=== PATIENT | male | born 1975 | race Hispanic/Latino ===

== ENCOUNTER 2016-08-13 19:35 | Emergency (ER) | payer MEDICAID, MEDICARE, OTHER ==
[2016-08-13 19:36] VITALS: BMI 45.6
[2016-08-13 20:22] VITALS: BP 141/95; PULSE 82; RESP 16; TEMP 98.6; O2SAT 99
--- NOTE | 2016-08-13 21:44 | ED PDOC ---
HPI: General Adult Time Seen by Provider: 08/13/16 21:15 Chief Complaint (Nursing): Abdominal Pain Chief Complaint (Provider): groin pain History Per: Patient (41 y/o male states he noted groin pain earlier today when walking that has now resolved. Denies any back pain/dysuria/hematuria/urinary frequency/fevers/chills/vomiting. Denies any h/o falls. Has h/o psych illness (but denies in ED). States he feels well now but was advised by brother to be evaluated in ED. Has h/o h/o kidney stones.) Past Medical History Reviewed: Historical Data, Nursing Documentation, Vital Signs Vital Signs: Last Vital Signs Temp 98.6 F 08/13/16 20:19 Pulse 82 08/13/16 20:19 Resp 16 08/13/16 20:19 BP 141/95 H 08/13/16 20:19 Pulse Ox 99 08/13/16 20:19 - Medical History PMH: Bipolar Disorder, GERD, Schizophrenia - Surgical History Surgical History: Appendectomy - Family History Family History: States: Unknown Family Hx - Immunization History Hx Tetanus Toxoid Vaccination: No Hx Influenza Vaccination: No Hx Pneumococcal Vaccination: No - Home Medications Home Medications: Ambulatory Orders Medication Instructions Recorded Acetaminophen [Tylenol 325mg tab] 650 mg PO Q6 PRN 07/29/16 Albuterol HFA [Ventolin HFA 90 2 puff IH [id number] #1 puff 07/29/16 mcg/actuation (8 g)] - Allergies Allergies/Adverse Reactions: Allergies Allergy/AdvReac Type Severity Reaction Status Date / Time DUST Allergy ITCHING Uncoded 08/13/16 20:19 Review of Systems ROS Statement: Except As Marked, All Systems Reviewed And Found Negative Physical Exam - Reviewed Nursing Documentation Reviewed: Yes Vital Signs Reviewed: Yes - Physical Exam Appears: Positive for: Well, Non-toxic, No Acute Distress Head Exam: Positive for: ATRAUMATIC, NORMAL INSPECTION, NORMOCEPHALIC Skin: Positive for: Normal Color, Warm, DRY Eye Exam: Positive for: EOMI, Normal appearance, PERRL ENT: Positive for: Normal ENT Inspection Neck: Positive for: Normal, Painless ROM Cardiovascular/Chest: Positive for: Regular Rate, Rhythm Respiratory: Positive for: CNT, Normal Breath Sounds Gastrointestinal/Abdominal: Positive for: Normal Exam, Bowel Sounds, Soft Male Genital Exam: Positive for: normal genitalia, no hernia. Negative for: inguinal tenderness, scrotum tenderness (R), scrotum tenderness (L), testicular tenderness (R), testicular tenderness (L) Back: Positive for: Normal Inspection Extremity: Positive for: Normal ROM Neurologic/Psych: Positive for: Alert, Oriented - Laboratory Results Urine dip results: Negative for: Leukocyte Esterase, Blood, Nitrate, Ketones, Glucose, Bilirubin, Protein - ECG O2 Sat by Pulse Oximetry: 99 Disposition - Clinical Impression Clinical Impression: Muscle strain - Patient ED Disposition Is Patient to be Admitted: No - Disposition Referrals: [facility] [Outside] Disposition: Routine/Home Disposition Time: 21:43 Condition: FAIR Instructions: Muscle Strain (ED)
== END 2016-08-13 21:54 | disposition home or self-care (01) ==
LOC: H.ER 19:35
DX: R10.9 Unspecified abdominal pain (principal)

== ENCOUNTER 2016-11-14 09:39 | Emergency (ER) | payer MEDICARE, OTHER ==
[2016-11-14 09:43] VITALS: BP 131/78; PULSE 90; TEMP 97; O2SAT 98; BMI 38.3
--- NOTE | 2016-11-15 17:51 | ED PDOC ---
HPI: CCC, URI, Sore Throat Time Seen by Provider: 11/14/16 10:01 Chief Complaint (Nursing): ENT Problem History Per: Patient History/Exam Limitations: no limitations Have you had recent travel within the past 21 days to any of the following countries: [place], [place], [place] or [place]?: No Onset/Duration Of Symptoms: Days (4) Current Symptoms Are (Timing): Still Present Location Of Pain: Ear(s), Throat, Sinus/es Sick Contacts (Context): None Associated Symptoms: Sore Throat, Neck Pain, Sinus Drainage, Myalgias, Nasal Congestion. denies: Fever, Chills, Cough, Sputum, Nausea, Vomiting, Diarrhea Ear Symptoms: Bilateral: None Severity: Mild Pain Scale Rating Of: 2 Additional History Per: Patient Additional Complaint(s): Pt c/o sore throat, runny nose x2 days. Denies fever. Reports taking OTC medications with no relief Past Medical History Reviewed: Historical Data, Nursing Documentation, Vital Signs Vital Signs: Last Vital Signs Temp 97 F L 11/14/16 09:42 Pulse 90 11/14/16 09:42 Resp BP 131/78 11/14/16 09:42 Pulse Ox 98 11/14/16 13:03 - Medical History PMH: Bipolar Disorder, GERD, Schizophrenia - Surgical History Surgical History: Appendectomy - Family History Family History: States: Unknown Family Hx - Immunization History Hx Tetanus Toxoid Vaccination: No Hx Influenza Vaccination: No Hx Pneumococcal Vaccination: No - Home Medications Home Medications: Ambulatory Orders Medication Instructions Recorded Acetaminophen [Tylenol 325mg tab] 650 mg PO Q6 PRN 07/29/16 Albuterol HFA [Ventolin HFA 90 2 puff IH [id number] #1 puff 07/29/16 mcg/actuation (8 g)] - Allergies Allergies/Adverse Reactions: Allergies Allergy/AdvReac Type Severity Reaction Status Date / Time DUST Allergy ITCHING Uncoded 08/13/16 20:19 Review of Systems ROS Statement: Except As Marked, All Systems Reviewed And Found Negative Physical Exam - Reviewed Nursing Documentation Reviewed: Yes Vital Signs Reviewed: Yes - Physical Exam Appears: Positive for: Well, Non-toxic, No Acute Distress Head Exam: Positive for: ATRAUMATIC Skin: Positive for: Warm, Dry Eye Exam: Positive for: EOMI ENT: Positive for: Normal ENT Inspection, Nasal Congestion. Negative for: Pharyngeal Erythema, Tonsillar Exudate, Tonsillar Swelling Neck: Positive for: Painless ROM, Supple Cardiovascular/Chest: Positive for: Regular Rate, Rhythm Respiratory: Negative for: Respiratory Distress Neurologic/Psych: Positive for: Alert, Oriented - ECG O2 Sat by Pulse Oximetry: 98 Medical Decision Making Medical Decision Making: Impression URI Diff include allergic sinusitis rhinitis, viral URI Plan rapid strep symptomatic care tat home Disposition - Clinical Impression Clinical Impression: Pharyngitis, Tonsillitis, Seasonal allergies - Patient ED Disposition Is Patient to be Admitted: No Doctor Will See Patient In The: Office Counseled Patient/Family Regarding: Studies Performed, Diagnosis, Need For Followup - Disposition Referrals: [facility] [Outside] Disposition: Routine/Home Disposition Time: 11:00 Condition: GOOD Additional Instructions: Follow up with your PCP in 2-3 days. Instructions: Pharyngitis (ED)
== END 2016-11-14 13:40 | disposition home or self-care (01) ==
LOC: H.ER 09:39
DX: J03.90 Acute tonsillitis, unspecified (principal); J30.2 Other seasonal allergic rhinitis; F20.9 Schizophrenia, unspecified; F31.9 Bipolar disorder, unspecified

== ENCOUNTER 2017-01-31 14:45 | Emergency (ER) | payer MEDICARE, OTHER ==
[2017-01-31 14:45] VITALS: BMI 38.3
[2017-01-31 15:13] VITALS: BP 128/72; PULSE 78; RESP 18; TEMP 98.4; O2SAT 100
--- NOTE | 2017-01-31 15:28 | ED PDOC ---
Upper Extremity Pain/Injury Time Seen by Provider: 01/31/17 15:16 Chief Complaint (Nursing): Finger,Hand,&Wrist Chief Complaint (Provider): right thumb laceration History Per: Patient History/Exam Limitations: no limitations Onset/Duration Of Symptoms: Days (x2) Current Symptoms Are (Timing): Still Present Additional Complaint(s): Bruce is a 41 y/o male who presents to the ED for evaluation of a laceration to the right thumb. States he accidentally cut himself on the thumb while opening aluminum can last night at 6PM. States he was unable to control the bleeding, prompting ED visit. Tetanus is not up to date. PMD: Dr. Sharma Past Medical History Reviewed: Historical Data, Nursing Documentation, Vital Signs Vital Signs: Last Vital Signs Temp 98.4 F 01/31/17 15:10 Pulse 78 01/31/17 15:10 Resp 18 01/31/17 15:10 BP 128/72 01/31/17 15:10 Pulse Ox 100 01/31/17 15:10 - Medical History PMH: Bipolar Disorder, GERD, Schizophrenia - Surgical History Surgical History: Appendectomy - Family History Family History: States: Unknown Family Hx - Immunization History Hx Tetanus Toxoid Vaccination: No Hx Influenza Vaccination: No Hx Pneumococcal Vaccination: No - Home Medications Home Medications: Ambulatory Orders Medication Instructions Recorded Acetaminophen [Tylenol 325mg tab] 650 mg PO Q6 PRN 07/29/16 Albuterol HFA [Ventolin HFA 90 2 puff IH [id number] #1 puff 07/29/16 mcg/actuation (8 g)] Cephalexin [cephalexin] 500 mg PO Q6 #12 cap 01/31/17 - Allergies Allergies/Adverse Reactions: Allergies Allergy/AdvReac Type Severity Reaction Status Date / Time DUST Allergy ITCHING Uncoded 08/13/16 20:19 Review of Systems ROS Statement: Except As Marked, All Systems Reviewed And Found Negative Constitutional: Negative for: Fever, Chills Skin: Positive for: Lesions (Laceration at right thumb) Neurological: Negative for: Weakness, Numbness Physical Exam - Reviewed Nursing Documentation Reviewed: Yes Vital Signs Reviewed: Yes - Physical Exam Appears: Positive for: Well, Non-toxic, No Acute Distress Head Exam: Positive for: ATRAUMATIC, NORMAL INSPECTION, NORMOCEPHALIC Skin: Positive for: Normal Color (with 0.5 cm linear very superficial laceration on the distal phalanx of the palmar surface of the right thumb. No active bleeding.), Warm, Dry Eye Exam: Positive for: EOMI, Normal appearance, PERRL Neck: Positive for: Normal, Painless ROM Respiratory: Negative for: Respiratory Distress Pulses-Radial (L): 2+ Pulses-Radial (R): 2+ Extremity: Positive for: Normal ROM (Full ROM actively of thumb), Capillary Refill (< 2 sec). Negative for: Deformity Neurologic/Psych: Positive for: Alert, Oriented - ECG O2 Sat by Pulse Oximetry: 100 (RA) Pulse Ox Interpretation: Normal Medical Decision Making Medical Decision Making: Time: 15:28 Initial Plan: --Given Tetanus vaccine --Patient stable for discharge home, given Rx for Cephalexin --Provided instructions for wound care and counseled on the need for follow up Clinical Impression: Finger laceration Scribe Attestation: Documented by Shu Zhou, acting as a scribe for Ayden Diallo PA-C Provider Scribe Attestation: All medical record entries made by the Scribe were at my direction and personally dictated by me. I have reviewed the chart and agree that the record accurately reflects my personal performance of the history, physical exam, medical decision making, and the department course for this patient. I have also personally directed, reviewed, and agree with the discharge instructions and disposition. Disposition - Clinical Impression Clinical Impression: Finger laceration - Patient ED Disposition Is Patient to be Admitted: No Counseled Patient/Family Regarding: Diagnosis, Need For Followup - Disposition Referrals: [facility] [Outside] Disposition: Routine/Home Disposition Time: 15:28 Condition: STABLE Prescriptions: Cephalexin [cephalexin] 500 mg PO Q6 #12 cap Instructions: Laceration Without Closure (ED) Forms: [employer] (Yi) Print Language: OCCITAN
== END 2017-01-31 16:37 | disposition home or self-care (01) ==
LOC: H.ER 14:45
DX: S61.011A Laceration without foreign body of right thumb without damage to nail, initial encounter (principal); W26.8XXA Contact with other sharp object(s), not elsewhere classified, initial encounter; Z23 Encounter for immunization

== ENCOUNTER 2017-04-11 19:13 | Emergency (ER) | payer MEDICARE, OTHER ==
[2017-04-11 19:13] VITALS: BMI 38.3
[2017-04-11 19:23] VITALS: PULSE 94; RESP 20; TEMP 98; O2SAT 98
[2017-04-11 19:35] VITALS: BP 136/86
--- NOTE | 2017-04-11 19:53 | ED PDOC ---
HPI: General Adult Chief Complaint (Nursing): Cough, Cold, Congestion Chief Complaint (Provider): Cough, Cold, Congestion History Per: Patient History/Exam Limitations: no limitations Onset/Duration Of Symptoms: Days, Other (x 1) Current Symptoms Are (Timing): Still Present Additional Complaint(s): Bruce is a 41 year old male with a past medical history of bipolar disorder and hypertension who presents to the emergency department complaining of nasal congestion and sore throat since yesterday. Patient admits to taking medications for hypertension. Denies fever or chills. PMD: Tristan Sharma Past Medical History Reviewed: Historical Data, Nursing Documentation, Vital Signs Vital Signs: Last Vital Signs Temp 98.0 F 04/11/17 19:22 Pulse 94 H 04/11/17 19:22 Resp 20 04/11/17 19:22 BP 136/86 04/11/17 19:34 Pulse Ox 98 04/11/17 20:27 - Medical History PMH: Bipolar Disorder, GERD, Schizophrenia - Surgical History Surgical History: Appendectomy - Family History Family History: States: Unknown Family Hx - Immunization History Hx Tetanus Toxoid Vaccination: No Hx Influenza Vaccination: No Hx Pneumococcal Vaccination: No - Home Medications Home Medications: Ambulatory Orders Medication Instructions Recorded Acetaminophen [Tylenol 325mg tab] 650 mg PO Q6 PRN 07/29/16 Albuterol HFA [Ventolin HFA 90 2 puff IH [id number] #1 puff 07/29/16 mcg/actuation (8 g)] Cephalexin [cephalexin] 500 mg PO Q6 #12 cap 01/31/17 Fluticasone Propionate [Flonase] 2 spr IN DAILY #1 bottle 04/11/17 - Allergies Allergies/Adverse Reactions: Allergies Allergy/AdvReac Type Severity Reaction Status Date / Time DUST Allergy ITCHING Uncoded 04/11/17 19:23 Review of Systems ROS Statement: Except As Marked, All Systems Reviewed And Found Negative ENT: Positive for: Nose Congestion, Throat Pain Physical Exam - Reviewed Nursing Documentation Reviewed: Yes Vital Signs Reviewed: Yes - Physical Exam Appears: Positive for: Non-toxic Head Exam: Positive for: ATRAUMATIC, NORMAL INSPECTION, NORMOCEPHALIC Skin: Positive for: Normal Color Eye Exam: Positive for: Normal appearance ENT: Positive for: Nasal Congestion. Negative for: Pharyngeal Erythema, Tonsillar Exudate Respiratory: Negative for: Respiratory Distress Extremity: Positive for: Normal ROM Neurologic/Psych: Positive for: Alert, Oriented (x 3) - ECG O2 Sat by Pulse Oximetry: 98 (RA) Pulse Ox Interpretation: Normal Medical Decision Making Medical Decision Making: Time: 19:52 Upon provider evaluation patient is medically stable, and requires no further treatment in the ED at this time. Patient will be discharged with Rx for Flonase. Counseling was provided and all questions were answered regarding diagnosis and need for follow up with local clinic. There is agreement to discharge plan. Return if symptoms persist or worsen. Scribe Attestation: Documented by Carlos Cottrell, acting as a scribe for Lucy Goodman PA-C Provider Scribe Attestation: All medical record entries made by the Scribe were at my direction and personally dictated by me. I have reviewed the chart and agree that the record accurately reflects my personal performance of the history, physical exam, medical decision making, and the department course for this patient. I have also personally directed, reviewed, and agree with the discharge instructions and disposition. Disposition - Clinical Impression Clinical Impression: Upper respiratory infection - Patient ED Disposition Is Patient to be Admitted: No - Disposition Disposition: Routine/Home Disposition Time: 20:23 Condition: FAIR Prescriptions: Fluticasone Propionate [Flonase] 2 spr IN DAILY #1 bottle Instructions: Upper Respiratory Infection (ED) Forms: [employer] (Belarusian), [facility] ED School/Work Excuse
== END 2017-04-11 20:28 | disposition home or self-care (01) ==
LOC: H.ER 19:13
DX: J06.9 Acute upper respiratory infection, unspecified (principal); F20.9 Schizophrenia, unspecified; F31.9 Bipolar disorder, unspecified; I10 Essential (primary) hypertension; K21.9 Gastro-esophageal reflux disease without esophagitis

== ENCOUNTER 2017-05-29 10:16 | Emergency (ER) | payer MEDICAID, MEDICARE, OTHER ==
[2017-05-29 10:21] VITALS: BMI 52.0
[2017-05-29 10:23] VITALS: RESP 16; O2SAT 100
[2017-05-29] MEDS ORDERED: Albuterol 0.083% Inhal Sol (2.5 mg/3 mL) UD INH STA (10:36)
[2017-05-29] MEDS ORDERED: Albuterol 0.083% Inhal Sol (2.5 mg/3 mL) UD ONE (10:44)
--- NOTE | 2017-05-29 10:47 | ED PDOC ---
HPI: CCC, URI, Sore Throat Time Seen by Provider: 05/29/17 10:19 Chief Complaint (Nursing): Cough, Cold, Congestion Chief Complaint (Provider): Throat pain, sinus pressure History Per: Patient History/Exam Limitations: no limitations Onset/Duration Of Symptoms: Days (Began yesterday ) Current Symptoms Are (Timing): Still Present Location Of Pain: Throat Sick Contacts (Context): None Associated Symptoms: Sore Throat, Cough (Dry for 2-3 days), Nasal Congestion. denies: Fever, Chills, Sinus Drainage, Myalgias, Vomiting, Diarrhea Ear Symptoms: Bilateral: None Additional Complaint(s): Pt has not been taking any medications for pain. Pt states he wanted to spend a few hours outside and wanted to make sure he wasn't too sick. Past Medical History Reviewed: Historical Data, Nursing Documentation, Vital Signs Vital Signs: Last Vital Signs Temp 98.0 F 05/29/17 10:22 Pulse 94 H 05/29/17 10:22 Resp 16 05/29/17 10:22 BP 145/99 H 05/29/17 10:22 Pulse Ox 100 05/29/17 10:47 - Medical History PMH: Bipolar Disorder, GERD, Schizophrenia - Surgical History Surgical History: Appendectomy - Family History Family History: States: Unknown Family Hx - Living Arrangements Living Arrangements: With Family - Social History Current smoker - smoking cessation education provided: No Alcohol: None Drugs: Denies - Immunization History Hx Tetanus Toxoid Vaccination: No Hx Influenza Vaccination: No Hx Pneumococcal Vaccination: No - Home Medications Home Medications: Ambulatory Orders Medication Instructions Recorded Acetaminophen [Tylenol 325mg tab] 650 mg PO Q6 PRN 07/29/16 Albuterol HFA [Ventolin HFA 90 2 puff IH [id number] #1 puff 07/29/16 mcg/actuation (8 g)] Cephalexin [cephalexin] 500 mg PO Q6 #12 cap 01/31/17 Fluticasone Propionate [Flonase] 2 spr IN DAILY #1 bottle 04/11/17 Albuterol HFA [Ventolin HFA 90 1 puff IH BID PRN #1 unit 05/29/17 mcg/actuation (8 g)] Fexofenadine/Pseudoephedrine 1 each PO BID PRN #12 tab.er.12h 05/29/17 [Lotus-D 12 Hour Tablet] - Allergies Allergies/Adverse Reactions: Allergies Allergy/AdvReac Type Severity Reaction Status Date / Time DUST Allergy ITCHING Uncoded 04/11/17 19:23 Review of Systems ROS Statement: Except As Marked, All Systems Reviewed And Found Negative Constitutional: Negative for: Fever, Chills ENT: Positive for: Nose Congestion, Throat Pain. Negative for: Ear Pain Cardiovascular: Negative for: Chest Pain, Palpitations Respiratory: Positive for: Cough Physical Exam - Reviewed Nursing Documentation Reviewed: Yes Vital Signs Reviewed: Yes - Physical Exam Appears: Positive for: Well, Non-toxic, No Acute Distress Head Exam: Positive for: ATRAUMATIC, NORMAL INSPECTION, NORMOCEPHALIC Skin: Positive for: Normal Color, Warm, DRY Eye Exam: Positive for: Normal appearance ENT: Positive for: Normal ENT Inspection Neck: Positive for: Normal, Painless ROM Cardiovascular/Chest: Positive for: Regular Rate, Rhythm Respiratory: Positive for: Wheezing (Mild, diffuse, expiratory). Negative for: Normal Breath Sounds Gastrointestinal/Abdominal: Positive for: Normal Exam, Bowel Sounds, Soft Back: Positive for: Normal Inspection Extremity: Positive for: Normal ROM Neurologic/Psych: Positive for: Alert, Oriented - ECG O2 Sat by Pulse Oximetry: 100 Disposition - Clinical Impression Clinical Impression: Viral illness - Patient ED Disposition Is Patient to be Admitted: No - Disposition Disposition: Routine/Home Disposition Time: 13:44 Condition: GOOD Prescriptions: Albuterol HFA [Ventolin HFA 90 mcg/actuation (8 g)] 1 puff IH BID PRN #1 unit PRN Reason: Wheezing Fexofenadine/Pseudoephedrine [Lotus-D 12 Hour Tablet] 1 each PO BID PRN #12 tab.er.12h PRN Reason: Cough And Congestion Instructions: Viral Syndrome (ED) Forms: [employer] (Irish)
[2017-05-29 14:08] VITALS: BP 140/80; PULSE 84; TEMP 98.4
== END 2017-05-29 14:07 | disposition home or self-care (01) ==
LOC: H.ER 10:16
DX: B34.9 Viral infection, unspecified (principal); F20.9 Schizophrenia, unspecified; F31.9 Bipolar disorder, unspecified; K21.9 Gastro-esophageal reflux disease without esophagitis

== ENCOUNTER 2017-06-24 07:26 | Emergency (ER) | payer MEDICARE ==
[2017-06-24 07:31] VITALS: BMI 38.3
[2017-06-24 07:32] VITALS: RESP 16; TEMP 97.5
[2017-06-24] MEDS ORDERED: Albuterol 0.083% Inhal Sol (2.5 mg/3 mL) UD INH STA (08:25)
--- NOTE | 2017-06-24 08:28 | ED PDOC ---
HPI: CCC, URI, Sore Throat Time Seen by Provider: 06/24/17 08:06 Chief Complaint (Nursing): Cough, Cold, Congestion History Per: Patient History/Exam Limitations: no limitations Onset/Duration Of Symptoms: Days (2), Gradual Current Symptoms Are (Timing): Still Present Sick Contacts (Context): None Associated Symptoms: Cough, Nasal Congestion. denies: Fever, Chills, Sore Throat, Sputum, Neck Pain, Sinus Drainage, Myalgias, Nausea, Vomiting, Diarrhea Ear Symptoms: Bilateral: None Severity: Mild Additional History Per: Patient Additional Complaint(s): c/o persistent cough, sinus pressure, runny nose x2 days. Past Medical History Reviewed: Historical Data, Nursing Documentation, Vital Signs Vital Signs: Last Vital Signs Temp 97.5 F L 06/24/17 07:31 Pulse 99 H 06/24/17 07:31 Resp 16 06/24/17 07:31 BP 139/91 H 06/24/17 07:31 Pulse Ox 97 06/24/17 08:29 - Medical History PMH: Bipolar Disorder, Bronchitis, GERD, HTN, Schizophrenia - Surgical History Surgical History: Appendectomy - Family History Family History: States: Unknown Family Hx - Living Arrangements Living Arrangements: With Family - Social History Current smoker - smoking cessation education provided: No - Immunization History Hx Tetanus Toxoid Vaccination: No Hx Influenza Vaccination: No Hx Pneumococcal Vaccination: No - Home Medications Home Medications: Ambulatory Orders Medication Instructions Recorded Acetaminophen [Tylenol 325mg tab] 650 mg PO Q6 PRN 07/29/16 Albuterol HFA [Ventolin HFA 90 2 puff IH [id number] #1 puff 07/29/16 mcg/actuation (8 g)] Cephalexin [cephalexin] 500 mg PO Q6 #12 cap 01/31/17 Fluticasone Propionate [Flonase] 2 spr IN DAILY #1 bottle 04/11/17 Albuterol HFA [Ventolin HFA 90 1 puff IH BID PRN #1 unit 05/29/17 mcg/actuation (8 g)] Fexofenadine/Pseudoephedrine 1 each PO BID PRN #12 tab.er.12h 05/29/17 [Lotus-D 12 Hour Tablet] Azithromycin 250 mg PO DAILY #4 tablet 06/24/17 - Allergies Allergies/Adverse Reactions: Allergies Allergy/AdvReac Type Severity Reaction Status Date / Time DUST Allergy ITCHING Uncoded 06/24/17 07:43 Review of Systems ROS Statement: Except As Marked, All Systems Reviewed And Found Negative Constitutional: Negative for: Fever, Chills ENT: Positive for: Nose Congestion. Negative for: Mouth Pain, Mouth Swelling, Throat Pain, Throat Swelling Cardiovascular: Negative for: Chest Pain, Palpitations Respiratory: Positive for: Cough, Sputum (white). Negative for: Shortness of Breath Gastrointestinal: Negative for: Nausea, Vomiting, Abdominal Pain, Diarrhea Neurological: Negative for: Weakness, Numbness Physical Exam - Reviewed Nursing Documentation Reviewed: Yes Vital Signs Reviewed: Yes - Physical Exam Appears: Positive for: Uncomfortable Head Exam: Positive for: ATRAUMATIC, NORMAL INSPECTION, NORMOCEPHALIC Eye Exam: Positive for: Normal appearance, EOMI, PERRL ENT: Positive for: Pharynx Is (clear,mmm), Nasal Congestion, Pharyngeal Erythema , Tonsillar Exudate. Negative for: Tonsillar Swelling Neck: Positive for: Normal, Painless ROM, Supple. Negative for: Decreased ROM, Limited ROM, Trachea Midline Cardiovascular/Chest: Positive for: Regular Rate, Rhythm. Negative for: Chest Non Tender, Edema, Gallop Respiratory: Positive for: Normal Breath Sounds. Negative for: Decreased Breath Sounds, Accessory Muscle Use, Crackles, Rales, Rhonchi, Stridor, Wheezing Gastrointestinal/Abdominal: Positive for: Normal Exam, Bowel Sounds, Soft. Negative for: Tenderness Extremity: Positive for: Normal ROM. Negative for: Tenderness, Pedal Edema, Calf Tenderness, Deformity, Swelling Neurologic/Psych: Positive for: Alert, french cord binder II-XII, Oriented, Mood/Affect (calm) , Gait (steady). Negative for: Motor/Sensory Deficits, Aphasia, Facial Droop - ECG O2 Sat by Pulse Oximetry: 97 Pulse Ox Interpretation: Normal - Radiology X-Ray: Interpreted by [facility] X-Ray Interpretation: Infiltrates (mild interstitial no lobar infiltrate) - Progress ED Course And Treament: will give z pack. advise close f/u with pmd or medical clinic pt agree's with plan and leaves ambulatory and in good spirits. Re-evaluation Time: 09:00 Condition: Improved Disposition - Clinical Impression Clinical Impression: Bronchitis - Patient ED Disposition Is Patient to be Admitted: No Counseled Patient/Family Regarding: Studies Performed, Diagnosis, Need For Followup, Rx Given - Disposition Referrals: [facility] [Outside] (2 to 3 days) Disposition: Routine/Home Disposition Time: 09:47 Condition: STABLE Prescriptions: Azithromycin 250 mg PO DAILY #4 tablet Instructions: Acute Bronchitis (ED) Forms: [employer] (Latvian)
[2017-06-24] MEDS ORDERED: Albuterol 0.083% Inhal Sol (2.5 mg/3 mL) UD ONE (08:33)
[2017-06-24 10:58] VITALS: BP 134/84; PULSE 87; O2SAT 98
--- NOTE | 2017-06-24 12:16 | RAD ---
HISTORY: Spell cough. COMPARISON: 10/21/2015. TECHNIQUE: Chest PA and lateral FINDINGS: LUNGS: No active pulmonary disease. PLEURA: No significant pleural effusion identified. No pneumothorax apparent. CARDIOVASCULAR: Normal. OSSEOUS STRUCTURES: No significant abnormalities. VISUALIZED UPPER ABDOMEN: Normal. OTHER FINDINGS: None. IMPRESSION: No active disease. No significant interval change compared to the prior examination(s). Concordant results with the preliminary interpretation rendered by the emergency department physician procedure.
== END 2017-06-24 10:56 | disposition home or self-care (01) ==
LOC: H.ER 07:26
DX: J40 Bronchitis, not specified as acute or chronic (principal); F20.9 Schizophrenia, unspecified; F31.9 Bipolar disorder, unspecified; I10 Essential (primary) hypertension; K21.9 Gastro-esophageal reflux disease without esophagitis

== ENCOUNTER 2017-10-18 08:30 | Emergency (ER) | payer MEDICARE ==
[2017-10-18 08:30] VITALS: BMI 38.3
[2017-10-18 08:36] VITALS: BP 134/89; PULSE 98; RESP 20; TEMP 98.5
[2017-10-18 08:42] VITALS: O2SAT 98
[2017-10-18] MEDS ORDERED: Albuterol 0.083% Inhal Sol (2.5 mg/3 mL) UD INH ONE (10:33)
--- NOTE | 2017-10-18 10:53 | ED PDOC ---
History of Present Illness History of Present Illness: 42 year old male presents to the emergency department with complaints of a cough onset two days. Patient denies fever, and denies taking any medications to help. PMD: none provided HPI: Influenza Time Seen by Provider: 10/18/17 09:00 Chief Complaint: Cough, Cold, Congestion Chief Complaint (Provider): cough History Per: Patient Exam Limitations: no limitations Onset/Duration Of Symptoms: Days (x2) Past Medical History Reviewed: Historical Data, Nursing Documentation, Vital Signs Vital Signs: Last Vital Signs Temp 98.5 F 10/18/17 08:33 Pulse 98 H 10/18/17 08:33 Resp 20 10/18/17 08:33 BP 134/89 10/18/17 08:33 Pulse Ox 98 10/18/17 08:40 - Medical History PMH: Bipolar Disorder, Bronchitis, GERD, HTN, Schizophrenia - Surgical History Surgical History: Appendectomy - Family History Family History: States: Unknown Family Hx - Social History Current smoker - smoking cessation education provided: No Alcohol: None Drugs: Denies - Immunization History Hx Tetanus Toxoid Vaccination: No Hx Influenza Vaccination: No Hx Pneumococcal Vaccination: No - Home Medications Home Medications: Ambulatory Orders Medication Instructions Recorded Acetaminophen [Tylenol 325mg tab] 650 mg PO Q6 PRN 07/29/16 Albuterol HFA [Ventolin HFA 90 2 puff IH [id number] #1 puff 07/29/16 mcg/actuation (8 g)] Cephalexin [cephalexin] 500 mg PO Q6 #12 cap 01/31/17 Fluticasone Propionate [Flonase] 2 spr IN DAILY #1 bottle 04/11/17 Albuterol HFA [Ventolin HFA 90 1 puff IH BID PRN #1 unit 05/29/17 mcg/actuation (8 g)] Fexofenadine/Pseudoephedrine 1 each PO BID PRN #12 tab.er.12h 05/29/17 [Lotus-D 12 Hour Tablet] Azithromycin 250 mg PO DAILY #4 tablet 06/24/17 Albuterol HFA [Ventolin HFA 90 1 - 2 puff IH Q4H PRN #1 bottle 10/18/17 mcg/actuation (8 g)] - Allergies Allergies/Adverse Reactions: Allergies Allergy/AdvReac Type Severity Reaction Status Date / Time DUST Allergy ITCHING Uncoded 10/18/17 08:40 Review of Systems ROS Statement: Except As Marked, All Systems Reviewed And Found Negative Constitutional: Negative for: Fever Respiratory: Positive for: Cough Physical Exam - Reviewed Nursing Documentation Reviewed: Yes Vital Signs Reviewed: Yes - Physical Exam Appears: Positive for: No Acute Distress Head Exam: Positive for: ATRAUMATIC, NORMOCEPHALIC Skin: Positive for: Normal Color, Warm, Dry Eye Exam: Positive for: Normal appearance ENT: Positive for: Normal ENT Inspection Neck: Positive for: Normal Cardiovascular/Chest: Positive for: Regular Rate, Rhythm. Negative for: Murmur Respiratory: Positive for: Normal Breath Sounds. Negative for: Accessory Muscle Use, Respiratory Distress Gastrointestinal/Abdominal: Positive for: Normal Exam Back: Positive for: Normal Inspection Extremity: Positive for: Normal ROM Neurologic/Psych: Positive for: Alert (and awake), Oriented (x3) Medical Decision Making Medical Decision Making: Initial Impression: cough rule out pneumonia Time: 10:33 Initial Plan: --Chest XR --Albuterol 0.083% 2.5 mg INH --Peak flow pre/post 11:19 Chest XR FINDINGS: LUNGS: No active pulmonary disease. PLEURA: No significant pleural effusion identified. No pneumothorax apparent. CARDIOVASCULAR: We No radiographic findings to suggest acute or significant cardiovascular disease. OSSEOUS STRUCTURES: No significant abnormalities. VISUALIZED UPPER ABDOMEN: Normal. OTHER FINDINGS: None. IMPRESSION: No active disease. No significant interval change compared to the prior examination(s). 12:10 Upon reevaluation patient reports feeling better. He will be discharged home. Scribe Attestation: Documented by Aurora Tapia, acting as a scribe for Chelsie Huertas MD Provider Scribe Attestation: All medical entries made by the Scribe were at my direction and personally dictated by me. I have reviewed the chart and agree that the record accurately reflects my personal performance of the history, physical exam, medical decision making, and the department course for this patient. I have also personally directed, reviewed, and agree with the discharge instructions and disposition. - ECG O2 Sat by Pulse Oximetry: 98 (RA) Pulse Ox Interpretation: Normal Disposition - Clinical Impression Clinical Impression: Common cold - Patient ED Disposition Is Patient to be Admitted: No Counseled Patient/Family Regarding: Studies Performed, Diagnosis, Need For Followup - Disposition Referrals: [facility] [Outside] [facility] [Outside] Disposition: Routine/Home Disposition Time: 11:25 Condition: IMPROVED Additional Instructions: follow up with your primary doctor in 1-2 days return to the ED with any worsening or concerning symptoms Prescriptions: Albuterol HFA [Ventolin HFA 90 mcg/actuation (8 g)] 1 - 2 puff IH Q4H PRN #1 bottle PRN Reason: Wheezing Instructions: Cough, Runny Nose, and the Common Cold (DC) Forms: [employer] (Azeri)
--- NOTE | 2017-10-18 11:21 | RAD ---
HISTORY: Cough COMPARISON: 07/14/2017. TECHNIQUE: Chest PA and lateral FINDINGS: LUNGS: No active pulmonary disease. PLEURA: No significant pleural effusion identified. No pneumothorax apparent. CARDIOVASCULAR: We No radiographic findings to suggest acute or significant cardiovascular disease. OSSEOUS STRUCTURES: No significant abnormalities. VISUALIZED UPPER ABDOMEN: Normal. OTHER FINDINGS: None. IMPRESSION: No active disease. No significant interval change compared to the prior examination(s).
== END 2017-10-18 12:16 | disposition home or self-care (01) ==
LOC: H.ER 08:30
DX: J00 Acute nasopharyngitis [common cold] (principal); Z86.59 Personal history of other mental and behavioral disorders; I10 Essential (primary) hypertension